=== PATIENT | female | born 1955 | race Caucasian/White ===

== ENCOUNTER 2020-01-01 07:54 | Outpatient (CLI) | payer BC, SELFPAY ==
[2020-01-01 08:55] LABS: Alanine Aminotransferase 39 U/L (4-35); Alkaline Phosphatase 60 U/L (38-126); Anion Gap 4 mmol/L (8-16); Aspartate Amino Transferase 34 U/L (14-36); Bilirubin,Total 0.1 mg/dL (0.2-1.3); Blood Urea Nitrogen 12 mg/dL (7-17); Calcium 8.8 mg/dL (8.4-10.2); Carbon Dioxide 29 mmol/L (22-30); Chloride 106 mmol/L (98-107); Estimated Glomerular Filt Rate > 60; Glucose 91 mg/dL (65-105); Potassium 3.9 mmol/L (3.4-5.0); Sodium 139 mmol/L (137-145)
== END 2020-01-01 07:55 | disposition home or self-care (01) ==
PROVIDERS: PCP Emergency Medicine; Visit Provider Emergency Medicine
DX: E78.5 Hyperlipidemia, unspecified (principal)
CPT/HCPCS: 36415; 80053

== ENCOUNTER 2020-02-06 09:41 | Outpatient (CLI) | payer BC, SELFPAY ==
--- NOTE | ~2020-02-06 | XR_ITS ---
EXAMINATION: XR shoulder RT min 2V EXAM DATE: 02/06/2020 10:08 INDICATION: No known recent injury provided at this time. Pain of the right shoulder. TECHNIQUE: The following right shoulder projections obtained: frontal projection with internal rotati on, frontal projection with external rotation, Grashey, and axillary (4+ views). There is no prior s tudy for comparison. FINDINGS: No evidence of right shoulder rotator cuff calcific tendinosis. There is mild acromiocla vicular joint primary osteoarthritis. There are no acute fractures or dislocations identified. There is no subcutaneous gas. The soft tissue is unremarkable. There are no radiopaque foreign bodies. IMPRESSION: Mild right acromioclavicular osteoarthritis. Reviewed, dictated and finalized at location B.
== END 2020-02-06 09:42 | disposition home or self-care (01) ==
PROVIDERS: PCP Emergency Medicine; Visit Provider Emergency Medicine
DX: M25.511 Pain in right shoulder (principal); M19.011 Primary osteoarthritis, right shoulder
CPT/HCPCS: 73030

== ENCOUNTER 2020-02-09 08:19 | Outpatient (CLI) | payer BC, SELFPAY ==
--- NOTE | ~2020-02-09 | MM_ITS ---
EXAMINATION: MM screening shimon BI w jose angel HISTORY: Screening mammogram TECHNIQUE: Craniocaudal and mediolateral oblique 3-D tomosynthesis images were obtained and synthetic 2-D images were generated. Bilateral rotated lateral CC views. CAD analysis was submitted and interp reted. COMPARISON: 06/11/2018, 08/29/2015, 08/10/2014 bilateral digital screening mammogram examinations BREAST PARENCHYMAL COMPOSITION: The breasts are heterogeneously dense, which may obscure small masses . FINDINGS: Stable mild fibroglandular asymmetry. There is no evidence of suspicious mass, calcificatio n, or architectural distortion to suggest malignancy in either breast. There has been no suspicious i nterval change. IMPRESSION: 1. No mammographic evidence of malignancy. 2. Recommend routine screening mammography in one year. BI-RADS Category 2: Benign finding(s). Reviewed, dictated and finalized at location A.
== END 2020-02-09 08:20 | disposition home or self-care (01) ==
PROVIDERS: PCP Emergency Medicine; Visit Provider Emergency Medicine
DX: Z12.31 Encounter for screening mammogram for malignant neoplasm of breast (principal)
CPT/HCPCS: 77063; 77067

== ENCOUNTER 2021-01-28 08:31 | Outpatient (CLI) | payer BC, SELFPAY ==
[2021-01-28 09:16] LABS: Alanine Aminotransferase 28 U/L (4-35); Albumin Level 4.4 g/dL (3.5-5.1); Alkaline Phosphatase 67 U/L (38-126); Anion Gap 8 mmol/L (8-16); Aspartate Amino Transferase 29 U/L (14-36); Bilirubin,Total 0.3 mg/dL (0.2-1.3); Blood Urea Nitrogen 10 mg/dL (7-17); Calcium 9.3 mg/dL (8.4-10.2); Carbon Dioxide 27 mmol/L (22-30); Chloride 106 mmol/L (98-107); Cholesterol 231 mg/dL (0-200); Estimated Glomerular Filt Rate > 60; Glucose 99 mg/dL (65-110); HDL Direct 43 mg/dL; Sodium 141 mmol/L (137-145); Triglycerides 179 mg/dL (<150)
[2021-01-28 09:27] LABS: LDL Cholesterol Direct 107 mg/dL
== END 2021-01-28 08:32 | disposition home or self-care (01) ==
PROVIDERS: PCP Emergency Medicine; Visit Provider Emergency Medicine
DX: Z13.220 Encounter for screening for lipoid disorders (principal)
CPT/HCPCS: 36415; 80053; 80061

== ENCOUNTER 2021-07-31 07:38 | Outpatient (CLI) | payer BC, SELFPAY ==
[2021-07-31 08:32] LABS: Alanine Aminotransferase 29 U/L (4-35); Albumin Level 4.2 g/dL (3.5-5.1); Alkaline Phosphatase 65 U/L (38-126); Anion Gap 7 mmol/L (8-16); Aspartate Amino Transferase 33 U/L (14-36); Bilirubin,Total 0.4 mg/dL (0.2-1.3); Blood Urea Nitrogen 11 mg/dL (7-17); Calcium 9.1 mg/dL (8.4-10.2); Carbon Dioxide 28 mmol/L (22-30); Chloride 105 mmol/L (98-107); Cholesterol 227 mg/dL (0-200); Estimated Glomerular Filt Rate > 60; Glucose 93 mg/dL (65-110); HDL Direct 39 mg/dL; Sodium 140 mmol/L (137-145); Triglycerides 165 mg/dL (<150)
[2021-07-31 08:43] LABS: LDL Cholesterol Direct 125 mg/dL
== END 2021-07-31 07:39 | disposition home or self-care (01) ==
PROVIDERS: PCP Emergency Medicine; Visit Provider Emergency Medicine
DX: Z13.220 Encounter for screening for lipoid disorders (principal)
CPT/HCPCS: 36415; 80053; 80061

== ENCOUNTER 2022-02-04 07:36 | Outpatient (CLI) | payer BC, SELFPAY ==
[2022-02-04 08:17] LABS: Alanine Aminotransferase 38 U/L (6-35); Albumin Level 4.1 g/dL (3.5-5.1); Alkaline Phosphatase 60 U/L (38-126); Anion Gap 8 mmol/L (8-16); Aspartate Amino Transferase 32 U/L (14-36); Bilirubin,Total 0.4 mg/dL (0.2-1.3); Blood Urea Nitrogen 11 mg/dL (7-17); Calcium 8.9 mg/dL (8.4-10.2); Carbon Dioxide 26 mmol/L (22-30); Chloride 105 mmol/L (98-107); Cholesterol 214 mg/dL (0-200); Estimated Glomerular Filt Rate > 60; Glucose 92 mg/dL (65-110); HDL Direct 42 mg/dL; Potassium 3.9 mmol/L (3.4-5.0); Sodium 139 mmol/L (137-145); Triglycerides 182 mg/dL (<150)
[2022-02-04 08:29] LABS: LDL Cholesterol Direct 112 mg/dL
== END 2022-02-04 07:37 | disposition home or self-care (01) ==
PROVIDERS: PCP Emergency Medicine; Visit Provider Emergency Medicine
DX: Z13.6 Encounter for screening for cardiovascular disorders (principal)
CPT/HCPCS: 36415; 80053; 80061

== ENCOUNTER 2022-03-23 09:05 | Outpatient (CLI) | payer BC, MEDICARE, SELFPAY ==
--- NOTE | ~2022-03-23 | MM_ITS ---
EXAMINATION: MM screening shimon BI w jose angel HISTORY: Screening mammogram TECHNIQUE: Craniocaudal and mediolateral oblique 3-D tomosynthesis images were obtained and synthetic 2-D images were generated. CAD analysis was submitted and interpreted. COMPARISON: 02/09/2020, 06/11/2018, 08/29/2015 bilateral screening mammogram examinations BREAST PARENCHYMAL COMPOSITION: The breasts are heterogeneously dense, which may obscure small masses . FINDINGS: There is no evidence of suspicious mass, calcification, or architectural distortion to sugg est malignancy in either breast. There has been no suspicious interval change. IMPRESSION: 1. No mammographic evidence of malignancy. 2. Recommend routine screening mammography in one year. BI-RADS Category 1: Negative Reviewed, dictated and finalized at location A. D CERTIFIED ARTS THERAPIST
== END 2022-03-23 09:06 | disposition home or self-care (01) ==
LOC: ANHIMG 09:08
PROVIDERS: PCP Emergency Medicine; Visit Provider Emergency Medicine
DX: Z12.31 Encounter for screening mammogram for malignant neoplasm of breast (principal)
CPT/HCPCS: 77063; 77067

== ENCOUNTER 2022-12-23 07:54 | Outpatient (CLI) | payer MEDICARE, BC, SELFPAY ==
[2022-12-23 09:10] LABS: Alanine Aminotransferase 39 U/L (6-35); Albumin Level 4.3 g/dL (3.5-5.1); Alkaline Phosphatase 61 U/L (38-126); Anion Gap 4 mmol/L (8-16); Aspartate Amino Transferase 40 U/L (14-36); Bilirubin,Total 0.5 mg/dL (0.2-1.3); Blood Urea Nitrogen 9 mg/dL (7-17); Calcium 8.9 mg/dL (8.4-10.2); Carbon Dioxide 31 mmol/L (22-30); Chloride 101 mmol/L (98-107); Cholesterol 202 mg/dL (0-200); Estimated Glomerular Filt Rate > 60; Glucose 91 mg/dL (65-110); HDL Direct 44 mg/dL; Potassium 3.6 mmol/L (3.4-5.0); Sodium 136 mmol/L (137-145); Triglycerides 143 mg/dL (<150)
[2022-12-23 09:20] LABS: LDL Cholesterol Direct 110 mg/dL
[2022-12-26 22:59] LABS: Vitamin D 1,25 (OH)2 Total 46 pg/mL (18-72); Vitamin D2 1,25 (OH)2 <8 pg/mL; Vitamin D3 1,25 (OH)2 46 pg/mL
== END 2022-12-23 07:55 | disposition home or self-care (01) ==
PROVIDERS: PCP Emergency Medicine; Visit Provider Emergency Medicine
DX: E11.9 Type 2 diabetes mellitus without complications (principal); E55.9 Vitamin D deficiency, unspecified
CPT/HCPCS: 36415; 80053; 80061; 82652

== ENCOUNTER 2023-02-11 08:43 | Outpatient (CLI) | payer MEDICARE, BC, SELFPAY ==
--- NOTE | ~2023-02-11 | CT_ITS ---
Non-contrast Head CT History: Migraine headache Technique: Axial non-contrast imaging of the brain was performed. Dose reduction technique was used on this scan by utilizing automated exposure control and iterative reconstruction technique. The dose -length product (DLP) was 605.33 mGy-cm. Findings: There is no evidence of intracranial hemorrhage, mass lesion, or acute infarct. Brain par enchyma appears normal. The ventricles and subarachnoid spaces are normal in size. The calvarium ap pears normal. The visualized paranasal sinuses and mastoid air cells are clear. Impression: No significant abnormality seen. Reviewed, dictated and finalized at location . Impression: No significant abnormality seen.
== END 2023-02-11 08:44 | disposition home or self-care (01) ==
PROVIDERS: PCP Emergency Medicine; Visit Provider Student in an Organized Health Care Education/Training Program
DX: G43.909 Migraine, unspecified, not intractable, without status migrainosus (principal)
CPT/HCPCS: 70450

== ENCOUNTER → 2023-03-25 10:59 | Outpatient (CLI) | payer MEDICARE, BC, SELFPAY ==
--- NOTE | ~2023-03-25 | DEXA_ITS ---
Bone Density Report Name: MECHELLE ZALDIVAR Age: 67 Sex: Female Ethnicity: White Date of : 1955 Indication: osteopenia; height loss; postmenopausal Referring Provider: REYNALDO GREWAL Study: Bone densitometry was performed. Exam Date: March 25, 2023 Accession number: [id number] Bone Density: Region BMD T-score Z-score Classification AP Spine (L1-L4) 0.824 -2.0 -0.2 Osteopenia Femoral Neck (Left) 0.513 -3.0 -1.5 Osteoporosis Total Hip (Left) 0.611 -2.7 -1.4 Osteoporosis Femoral Neck (Right) 0.499 -3.2 -1.6 Osteoporosis Total Hip (Right) 0.605 -2.8 -1.5 Osteoporosis Total Hip Mean 0.608 -2.8 -1.5 Osteoporosis World Health Organization criteria for BMD impression classify patients as: Normal (T-score at or above -1.0), Osteopenia (T-score between -1.0 and -2.5), or Osteoporosis (T-score at or below -2.5). 10-year Fracture Risk: FRAX not reported because: Some T-score for Spine Total or Hip Total or Femoral Neck at or below -2.5 Previous Exams: Region Exam Age BMD T-score BMD Change BMD Change Date g/cm2 vs Baseline vs Previous AP Spine(L1-L4) 03/25/2023 67 0.824 -2.0 -0.278* -0.278* 10/24/2010 55 1.102 0.5 Total Hip(Left) 03/25/2023 67 0.611 -2.7 -0.141* -0.141* 10/24/2010 55 0.752 -1.6 Total Hip(Right) 03/25/2023 67 0.605 -2.8 -0.151* -0.151* 10/24/2010 55 0.756 -1.5 *Denotes significance at 95% confidence level, LSC for AP Spine = 0.022 g/cm2, LSC for Total Hip = 0.027 g/cm2 Clinical Information Provided by Patient: Patient maximum height was 67.0 Menopause Age: 55 No regular weight bearing exercise Onset of menses at age 14 Number of children 3 Impression: The patient has osteoporosis, based on the Right Femoral Neck T-score. The BMD for the AP Spine(L1-L4) decreased, changing by -0.278 since the last DXA exam. The BMD for the Total Hip(Left) decreased, changing by -0.141 since the last DXA exam. The BMD for the Total Hip(Right) decreased, changing by -0.151 since the last DXA exam. Discussion: INCREASED RISK OF FRACTURE. BONE DENSITY IS UNDESIRABLY LOW AT ONE OR MORE SKELETAL SITES, CONSISTENT WITH POSTMENOPAUSAL OSTEOPOROSIS. This patient's lowest T-score meets the World Health Organization's (WHO) criteria for osteoporosis at one or more sites (T-score -2.5 or below). In untreated patients, the risk of osteoporotic fracture increases approximately two-fold for each 1.0
== END ==
PROVIDERS: PCP Emergency Medicine; Visit Provider Emergency Medicine
DX: Z78.0 Asymptomatic menopausal state (principal); M85.88 Other specified disorders of bone density and structure, other site; M81.0 Age-related osteoporosis without current pathological fracture
CPT/HCPCS: 77080

== ENCOUNTER 2023-06-08 08:07 | Outpatient (CLI) | payer MEDICARE, BC, SELFPAY ==
[2023-06-08 09:59] LABS: Cholesterol 208 mg/dL (0-200); HDL Direct 43 mg/dL; Triglycerides 114 mg/dL (<150)
[2023-06-08 10:10] LABS: LDL Cholesterol Direct 119 mg/dL
== END 2023-06-08 08:08 | disposition home or self-care (01) ==
PROVIDERS: PCP Emergency Medicine; Visit Provider Emergency Medicine
DX: E78.00 Pure hypercholesterolemia, unspecified (principal)
CPT/HCPCS: 36415; 80061

== ENCOUNTER 2023-11-11 08:42 | Outpatient (CLI) | payer MEDICARE, BC, SELFPAY ==
[2023-11-11 09:25] LABS: Alanine Aminotransferase 22 U/L (6-35); Alkaline Phosphatase 50 U/L (38-126); Anion Gap 5 mmol/L (4-12); Aspartate Amino Transferase 25 U/L (14-36); Bilirubin,Total 0.3 mg/dL (0.2-1.3); Blood Urea Nitrogen 9 mg/dL (7-17); Calcium 8.9 mg/dL (8.4-10.2); Carbon Dioxide 27 mmol/L (22-30); Chloride 104 mmol/L (98-107); Estimated Glomerular Filt Rate > 60; Glucose 75 mg/dL (65-110); Potassium 3.8 mmol/L (3.4-5.0); Sodium 136 mmol/L (137-145)
[2023-11-11 09:42] LABS: Vitamin D 25 Hydroxy 84.5 ng/mL
== END 2023-11-11 08:43 | disposition home or self-care (01) ==
LOC: ANHLAB 08:45
PROVIDERS: PCP Emergency Medicine; Visit Provider Emergency Medicine
DX: E55.9 Vitamin D deficiency, unspecified (principal); E78.5 Hyperlipidemia, unspecified
CPT/HCPCS: 36415; 80053; 82306

== ENCOUNTER 2023-12-17 09:33 | Outpatient (CLI) | payer MEDICARE, BC, SELFPAY ==
--- NOTE | ~2023-12-17 | MM_ITS ---
EXAMINATION: MM screening shimon BI w jose angel HISTORY: Screening TECHNIQUE: Craniocaudal and mediolateral oblique 3-D tomosynthesis images were obtained and synthetic 2-D images were generated. CAD analysis was submitted and interpreted. COMPARISON: Comparison to multiple prior studies sequentially, with oldest reviewed study dated 08/10. BREAST PARENCHYMAL COMPOSITION: Dense: The breasts are heterogeneously dense, which may obscure small masses FINDINGS: There is no evidence of suspicious mass, calcification, or architectural distortion to sugg est malignancy in either breast. There has been no suspicious interval change. IMPRESSION: 1. No mammographic evidence of malignancy. 2. Recommend routine screening mammography in one year. BI-RADS Category 1: Negative Reviewed, dictated and finalized at location B.
== END 2023-12-17 09:34 | disposition home or self-care (01) ==
LOC: ANHIMG 09:34
PROVIDERS: PCP Emergency Medicine; Visit Provider Emergency Medicine
DX: Z12.31 Encounter for screening mammogram for malignant neoplasm of breast (principal)
CPT/HCPCS: 77063; 77067

== ENCOUNTER 2024-09-08 07:33 | Outpatient (CLI) | payer MEDICARE, BC, SELFPAY ==
--- OUTSIDE RECORDS SUMMARY | 2024-09-08 07:37 | XMS_ITS | Clinical Summary ---
Author Organization [facility] [address] Address [address] [facility] [place] [address] Care Team Providers Care Residential Remodeling Subcontractor Name Role Phone Unavailable Primary Care Provider Unavailabl e Allergies No known active allergies Medications HYDROcodone-guero taminophen (VICODIN) 5-500 mg Oral tablet Take 1 Tab by mouth every 4 hours as needed for Pain. 30 Tab 0 08/03/2012 Active HYDROcodone-guero taminophen (NORCO) 5-325 mg tablet Take 1 Tab by mouth every 4 hours as needed for Pain, Moderate. 30 Tab 0 01/18/2014 Active metoprolol tartrate (LOPRESSOR) 50 mg tablet TAKE ONE AND ONE-HALF TABLET BY MOUTH TWICE A DAY 90 Tab 0 03/12/2014 Active PARoxetine HCl (PAXIL) 10 mg tablet TAKE ONE TABLET BY MOUTH ONCE DAILY 30 Tab 0 03/12/2014 Active PARoxetine HCl (PAXIL) 10 mg tablet TAKE ONE TABLET BY MOUTH ONCE DAILY 30 Tab 0 03/14/2014 Active metoprolol tartrate (LOPRESSOR) 50 mg tablet TAKE ONE AND ONE-HALF TABLET BY MOUTH TWICE A DAY 90 Tab 0 03/14/2014 Active RELPAX 40 mg Tablet TAKE 1 TABLET BY MOUTH EVERY 2 HOURS NEEDED FOR MIGRAINE - MAY REPEAT IN 2 HOURS - MAX DOSE OF 80MG ( 2 TABLETS) IN 24 HOURS 8 Tab 0 04/27/2014 Active eletriptan (RELPAX) 40 mg Tablet Take 1 Tablet (40 mg) by mouth 1 time daily as needed for Migraine May repeat in 2 hrs. Max daily dose 80mg. PATIENT NEEDS APPOINTMENT. 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 Immunizations Immunization Administration Dates Next Due (TDVAX)(7 YRS UP) TETANUS AN D DIPHTHERIA TOXOIDS, ADSORBED (2 LF OF TETANUS TOXOID AND 2 LF OF DIPHTHERIA TOXOID), 0.5ML (PF), IM 05/17/2007 Family History Medical History Relation Name Comments Hypertension Father Colon Cancer Maternal Grandmother Hypertension Mother Relation Name Status Comments Father Alive Maternal Grandmother Mother Alive Social History Tobacco Use Types Packs/Day Years Used Date Smoking Tobacco: Never Smokeless Tobacco: Never Alcohol Use Standard Drinks/Week Comments Yes 0 (1 standard drink = 0.6 oz pur e alcohol) Comments No Sex and Gender Information Value Date Recorded Sex Assigned at Not on file Legal Sex Female 4:28 AM YARN CLEANER Gender Identity Not on file Sexual Orientation Not on file Last Filed Vital Signs Vital Sign Reading Time Taken Comments Blood Pressure 102/60 03/17/2013 9:52 AM CDT Pulse 72 03/17/2013 9:52 AM CDT Temperature - - Respiratory Rate 12 03/17/2013 9:52 AM CDT Oxygen Saturation - - Inhaled Oxygen Concentration - - Weight 46.7 kg (103 lb) 03/17/2013 9:52 AM CDT Height 170.2 cm (5' 7 ) 03/17/2013 9:52 AM CDT Body Mass Index 16.13 03/17/2013 9:52 AM CDT Plan of Treatment Health Maintenance Due Date Last Done Comments FIT-DNA Q 3 years 2002 FIT/FOBT Q 1 year 2002 Flex Sig/CT Colonography Q 5 years 2002 PNEUMOCOCCAL VACCINE 50+ YEA RS (1 of 1 - PCV) 2007 ZOSTER VACCINE (1 of 2) 2007 DTAP/TDAP/TD VACCINES (1 - Tdap) 05/18/2007 05/17/19 08 BREAST CANCER SCREENING 10/15/2012 10/16/19 12, 12/15/2010, 05/17/2008 OSTEOPOROSIS SCREENING 12/15/2012 1, 08/29/2009 (Declined) COLORECTAL SCREENING 08/30/2019 08/29/2009 (Declined ) Colorectal Cancer Screening 08/30/2019 INFLUENZA VACCINE (#1) 2023 RSV VACCINE (60+ or ) (1 - 1-dose 75+ series) 2032 Insurance [facility] BLUE PREFERRED [facility] BLUE PREFERRED
--- OUTSIDE RECORDS SUMMARY | 2024-09-08 07:37 | XMS_ITS | Encounter Summary ---
Author Organization [facility] Address [address] [place] [address] Care Team Providers Care Boot And Saddle Repair Person Name Role Phone Mina Boston MD Primary Care Provider [phone] Encounter Details Date Type Department Care Team (Late st Contact Info) Description 04/18/2003 Outpatient Historical [facility] Internal Medicine [address] [phone] Mina Boston MD [address] [place] [phone] Social History Tobacco Use Types Packs/Day Years Used Date Smoking Tobacco: Never Assessed Comments Unknown Sex and Gender Information Value Date Recorded Sex Assigned at Not on file Legal Sex Female 4:28 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
--- OUTSIDE RECORDS SUMMARY | 2024-09-08 07:37 | XMS_ITS | Encounter Summary ---
Author Organization [facility] Address [address] [place] [address] Care Team Providers Care Political Geographer Name Role Phone Mina Boston MD Primary Care Provider [phone] Encounter Details Date Type Department Care Team (Late st Contact Info) Description 03/12/1999 Outpatient Historical [facility] Internal Medicine [address] [phone] Mina Boston MD [address] [place] [phone] Social History Tobacco Use Types Packs/Day Years Used Date Smoking Tobacco: Never Assessed Comments Unknown Sex and Gender Information Value Date Recorded Sex Assigned at Not on file Legal Sex Female 4:28 AM WINE STEWARD Gender Identity Not on file Sexual Orientation Not on file documented as of this encounter Plan of Treatment Not on file documented as of this encounter Visit Diagnoses Not on filedocumented in this encounter Care Teams Political Geographer Relationship Specialty Start Date End Date Mina Boston MD [address] [phone] PCP - General Internal Medicine 08/06/10 08/20/15 documented as of this encounter
--- OUTSIDE RECORDS SUMMARY | 2024-09-08 07:37 | XMS_ITS | Encounter Summary ---
Author Organization [facility] Address [address] [place] [address] Care Team Providers Care Steel Melter Name Role Phone Mina Boston MD Primary Care Provider [phone] Encounter Details Date Type Department Care Team (Late st Contact Info) Description 03/17/2000 Outpatient Historical [facility] Internal Medicine [address] [phone] Mina Boston MD [address] [place] [phone] Social History Tobacco Use Types Packs/Day Years Used Date Smoking Tobacco: Never Assessed Comments Unknown Sex and Gender Information Value Date Recorded Sex Assigned at Not on file Legal Sex Female 4:28 AM NUCLEAR STATION OPERATOR Gender Identity Not on file Sexual Orientation Not on file documented as of this encounter Plan of Treatment Not on file documented as of this encounter Visit Diagnoses Not on filedocumented in this encounter Care Teams Steel Melter Relationship Specialty Start Date End Date Mina Boston MD [address] [phone] PCP - General Internal Medicine 08/06/10 08/20/15 documented as of this encounter
--- OUTSIDE RECORDS SUMMARY | 2024-09-08 07:37 | XMS_ITS | Encounter Summary ---
Author Organization [facility] Address [address] [place] [address] Care Team Providers Care Hot Metal Crane Operator Name Role Phone Mina Bostno MD Primary Care Provider [phone] Encounter Details Date Type Department Care Team (Late st Contact Info) Description 10/20/2000 Outpatient Historical [facility] Internal Medicine [address] [phone] Mina Boston MD [address] [place] [phone] Social History Tobacco Use Types Packs/Day Years Used Date Smoking Tobacco: Never Assessed Comments Unknown Sex and Gender Information Value Date Recorded Sex Assigned at Not on file Legal Sex Female 4:28 AM ESTHETICS INSTRUCTOR Gender Identity Not on file Sexual Orientation Not on file documented as of this encounter Plan of Treatment Not on file documented as of this encounter Visit Diagnoses Not on filedocumented in this encounter Care Teams Hot Metal Crane Operator Relationship Specialty Start Date End Date Mina Boston MD [address] [phone] PCP - General Internal Medicine 08/06/10 08/20/15 documented as of this encounter
--- OUTSIDE RECORDS SUMMARY | 2024-09-08 07:37 | XMS_ITS | Encounter Summary ---
Author Organization [facility] Address [address] [place] [address] Care Team Providers Care Services Coordinator Name Role Phone Mina Boston MD Primary Care Provider Encounter Details Date Type Department Care Team (Late st Contact Info) Description 11/13/1997 Outpatient Historical [facility] Internal Medicine - [address] [phone] Mina Boston MD [address] [place] [phone] Social History Tobacco Use Types Packs/Day Years Used Date Smoking Tobacco: Never Assessed Comments Unknown Sex and Gender Information Value Date Recorded Sex Assigned at Not on file Legal Sex Female 4:28 AM STATIONS SUPERINTENDENT Gender Identity Not on file Sexual Orientation Not on file documented as of this encounter Plan of Treatment Not on file documented as of this encounter Visit Diagnoses Not on filedocumented in this encounter Care Teams Services Coordinator Relationship Specialty Start Date End Date Mina Boston MD [address] [place] [phone] PCP - General Internal Medicine 08/06/10 08/20/15 documented as of this encounter
--- OUTSIDE RECORDS SUMMARY | 2024-09-08 07:37 | XMS_ITS | Encounter Summary ---
Author Organization [facility] Address [address] [place] [address] Care Team Providers Care Outside Machinist Apprentice Name Role Phone Mina Boston MD Primary Care Provider [phone] Encounter Details Date Type Department Care Team (Late st Contact Info) Description 03/17/2001 Outpatient Historical [facility] Internal Medicine [address] [phone] Calderon Ramos, Marcel Garduno MD NO ADDRESS ON FILE Social History Tobacco Use Types Packs/Day Years Used Date Smoking Tobacco: Never Assessed Comments Unknown Sex and Gender Information Value Date Recorded Sex Assigned at Not on file Legal Sex Female 4:28 AM CASE MANAGEMENT COORDINATOR Gender Identity Not on file Sexual Orientation Not on file documented as of this encounter Plan of Treatment Not on file documented as of this encounter Visit Diagnoses Not on filedocumented in this encounter Care Teams Outside Machinist Apprentice Relationship Specialty Start Date End Date Mina Boston MD [address] [place] [phone] PCP - General Internal Medicine 08/06/10 08/20/15 documented as of this encounter
--- OUTSIDE RECORDS SUMMARY | 2024-09-08 07:37 | XMS_ITS | Encounter Summary ---
Author Organization [facility] Address [address] [place] [address] Care Team Providers Care Sociocultural Anthropology Professor Name Role Phone Mina Boston MD Primary Care Provider [phone] Encounter Details Date Type Department Care Team (Late st Contact Info) Description 06/10/2005 Outpatient Historical [facility] Internal Medicine [address] [phone] Mina Boston MD [address] [place] [phone] Social History Tobacco Use Types Packs/Day Years Used Date Smoking Tobacco: Never Assessed Comments Unknown Sex and Gender Information Value Date Recorded Sex Assigned at Not on file Legal Sex Female 4:28 AM CLEANER OPERATOR Gender Identity Not on file Sexual Orientation Not on file documented as of this encounter Plan of Treatment Not on file documented as of this encounter Visit Diagnoses Not on filedocumented in this encounter Care Teams Sociocultural Anthropology Professor Relationship Specialty Start Date End Date Mina Boston MD [address] [phone] PCP - General Internal Medicine 08/06/10 08/20/15 documented as of this encounter
--- OUTSIDE RECORDS SUMMARY | 2024-09-08 07:37 | XMS_ITS | Encounter Summary ---
Author Organization [facility] Address [address] [place] [address] Care Team Providers Care Precast Molder Name Role Phone Mina Boston MD Primary Care Provider [phone] Encounter Details Date Type Department Care Team (Late st Contact Info) Description 10/20/2000 Outpatient Historical [facility] Internal Medicine [address] [phone] Mina Boston MD [address] [place] [phone] Social History Tobacco Use Types Packs/Day Years Used Date Smoking Tobacco: Never Assessed Comments Unknown Sex and Gender Information Value Date Recorded Sex Assigned at Not on file Legal Sex Female 4:28 AM TREE TRIMMING LINE TECHNICIAN Gender Identity Not on file Sexual Orientation Not on file documented as of this encounter Plan of Treatment Not on file documented as of this encounter Visit Diagnoses Not on filedocumented in this encounter Care Teams Precast Molder Relationship Specialty Start Date End Date Mina Boston MD [address] [phone] PCP - General Internal Medicine 08/06/10 08/20/15 documented as of this encounter
[2024-09-08 08:03] LABS: Cholesterol 197 mg/dL (0-200); HDL Direct 53 mg/dL; Triglycerides 71 mg/dL (<150)
[2024-09-08 08:13] LABS: LDL Cholesterol Direct 100 mg/dL
== END 2024-09-08 07:34 | disposition home or self-care (01) ==
LOC: ANHLAB 07:35
PROVIDERS: PCP Emergency Medicine; Visit Provider Psychiatry & Neurology Neurology
DX: E78.5 Hyperlipidemia, unspecified (principal)
CPT/HCPCS: 36415; 80061

== ENCOUNTER 2024-09-13 14:13 | Outpatient (CLI) | payer MEDICARE, BC, SELFPAY ==
--- NOTE | ~2024-09-13 | US_ITS ---
EXAMINATION: US carotid duplex BI DATE: 09/13/2024 15:02 INDICATION: Carotid bruit TECHNIQUE: Grayscale, color Doppler, and pulsed Doppler images of the cervical carotid arteries were obtained. The degree of vessel stenosis is placed in one of the following categories: normal, <50%, 5 0-69%, >=70% but less than near-occlusion, near-occlusion, or total occlusion. Note that percent sten osis relative to normal distal artery lumen diameter is indirectly measured from velocity measurement s as described by Julio Cesar, et al. Radiology 2003; 229:340-346. Notes: Normal: Peak systolic velocity <125 centimeters/sec and no plaque <50%. Peak systolic velocity <125 ( EDV <40; ICA/CCA PSV ratio <2.0; used these factors only a tandem lesions or low cardiac output or co ntralateral disease) 50-69 %: PSV 125-230 (EDV 40-100; ratio 2-4) >= 70% but less than near occlusion: PSV greater than 230 (EDV > 100; ratio> 4.0) Near Occlusion: PSV that is variable; markedly narrowed lumen Occlusion: Absent flow on color/spectral Doppler and no lumen on cooley scale. COMPARISON: None. FINDINGS: RIGHT: The right common carotid artery (CCA) peak systolic velocity (PSV) is 108 cm/s. The right internal ca rotid artery (ICA) PSV is 122 cm/s. The right ICA end-diastolic velocity (EDV) is 38 cm/s. The right ICA/CCA PSV ratio is 1.1. The external carotid artery (ECA) PSV is 91 cm/s. There is antegrade flow i n the right vertebral artery. LEFT: The left CCA PSV is 102 cm/s. The left ICA PSV is 110 cm/s. The left ICA EDV is 25 cm/s. The left ICA /CCA PSV ratio is 1.2. The ECA PSV is 114 cm/s. There is antegrade flow in the left vertebral artery . IMPRESSION: 1. Less than 50% stenosis in the right internal carotid artery by sonographic criteria. 2. Less than 50% stenosis in the left internal carotid artery by sonographic criteria. Reviewed, dictated and finalized at location A. IMPRESSION: 1. Less than 50% stenosis in the right internal carotid artery by sonographic geetha roque. 2. Less than 50% stenosis in the left internal carotid artery by sonographic chitra carroll.
--- OUTSIDE RECORDS SUMMARY | 2024-09-13 15:21 | XMS_ITS | Encounter Summary ---
Author Organization [facility] Address [address] [place] [address] Care Team Providers Care Interventional Physician Name Role Phone Mina Boston MD Primary Care Provider [phone] Encounter Details Date Type Department Care Team (Late st Contact Info) Description 03/17/2000 Outpatient Historical [facility] Internal Medicine [address] [phone] Mina Boston MD [address] [place] [phone] Social History Tobacco Use Types Packs/Day Years Used Date Smoking Tobacco: Never Assessed Comments Unknown Sex and Gender Information Value Date Recorded Sex Assigned at Not on file Legal Sex Female 4:28 AM HAND MICA PLATE LAYER Gender Identity Not on file Sexual Orientation Not on file documented as of this encounter Plan of Treatment Not on file documented as of this encounter Visit Diagnoses Not on filedocumented in this encounter Care Teams Interventional Physician Relationship Specialty Start Date End Date Mina Boston MD [address] [phone] PCP - General Internal Medicine 08/06/10 08/20/15 documented as of this encounter
--- OUTSIDE RECORDS SUMMARY | 2024-09-13 15:21 | XMS_ITS | Encounter Summary ---
Author Organization [facility] Address [address] [place] [address] Care Team Providers Care Airplane Pilot Helper Name Role Phone Mina Boston MD Primary Care Provider Encounter Details Date Type Department Care Team (Late st Contact Info) Description 11/13/1997 Outpatient Historical [facility] Internal Medicine - [facility] [address] [phone] Mina Boston MD [address] [place] [phone] Social History Tobacco Use Types Packs/Day Years Used Date Smoking Tobacco: Never Assessed Comments Unknown Sex and Gender Information Value Date Recorded Sex Assigned at Not on file Legal Sex Female 4:28 AM SUPPLIER DEVELOPMENT MANAGER Gender Identity Not on file Sexual Orientation Not on file documented as of this encounter Plan of Treatment Not on file documented as of this encounter Visit Diagnoses Not on filedocumented in this encounter Care Teams Airplane Pilot Helper Relationship Specialty Start Date End Date Mina Boston MD [address] [place] [phone] PCP - General Internal Medicine 08/06/10 08/20/15 documented as of this encounter
--- OUTSIDE RECORDS SUMMARY | 2024-09-13 15:21 | XMS_ITS | Encounter Summary ---
Author Organization [facility] Address [address] [place] [address] Care Team Providers Care Healthcare Consultant Name Role Phone Mina Boston MD Primary Care Provider [phone] Encounter Details Date Type Department Care Team (Late st Contact Info) Description 06/10/2005 Outpatient Historical [facility] Internal Medicine [address] [phone] Mina Boston MD [address] [place] [phone] Social History Tobacco Use Types Packs/Day Years Used Date Smoking Tobacco: Never Assessed Comments Unknown Sex and Gender Information Value Date Recorded Sex Assigned at Not on file Legal Sex Female 4:28 AM EAP COUNSELOR Gender Identity Not on file Sexual Orientation Not on file documented as of this encounter Plan of Treatment Not on file documented as of this encounter Visit Diagnoses Not on filedocumented in this encounter Care Teams Healthcare Consultant Relationship Specialty Start Date End Date Mina Boston MD [address] [phone] PCP - General Internal Medicine 08/06/10 08/20/15 documented as of this encounter
--- OUTSIDE RECORDS SUMMARY | 2024-09-13 15:21 | XMS_ITS | Encounter Summary ---
Author Organization [facility] Address [address] [place] [address] Care Team Providers Care Inserter Operator Name Role Phone Mina Boston MD Primary Care Provider [phone] Encounter Details Date Type Department Care Team (Late st Contact Info) Description 04/18/2003 Outpatient Historical [facility] Internal Medicine [address] [phone] Mina Boston MD [address] [place] [phone] Social History Tobacco Use Types Packs/Day Years Used Date Smoking Tobacco: Never Assessed Comments Unknown Sex and Gender Information Value Date Recorded Sex Assigned at Not on file Legal Sex Female 4:28 AM HOG SCALDER Gender Identity Not on file Sexual Orientation Not on file documented as of this encounter Plan of Treatment Not on file documented as of this encounter Visit Diagnoses Not on filedocumented in this encounter Care Teams Inserter Operator Relationship Specialty Start Date End Date Mina Boston MD [address] [phone] PCP - General Internal Medicine 08/06/10 08/20/15 documented as of this encounter
--- OUTSIDE RECORDS SUMMARY | 2024-09-13 15:21 | XMS_ITS | Encounter Summary ---
Author Organization [facility] Address 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
--- OUTSIDE RECORDS SUMMARY | 2024-09-13 15:21 | XMS_ITS | Encounter Summary ---
Author Organization [facility] Address 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
--- OUTSIDE RECORDS SUMMARY | 2024-09-13 15:21 | XMS_ITS | Encounter Summary ---
Author Organization [facility] Address 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
--- OUTSIDE RECORDS SUMMARY | 2024-09-13 15:21 | XMS_ITS | Clinical Summary ---
Author Organization [facility] [address] Address [address] [facility] 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
--- OUTSIDE RECORDS SUMMARY | 2024-09-13 15:21 | XMS_ITS | Encounter Summary ---
Author Organization [facility] Address [address] [place] [address] Care Team Providers Care Senior Oracle Applications Developer Name Role Phone Mina Boston MD Primary Care Provider [phone] Encounter Details Date Type Department Care Team (Late st Contact Info) Description 10/20/2000 Outpatient Historical [facility] Internal Medicine [address] [phone] Mina Boston MD [address] [place] [phone] Social History Tobacco Use Types Packs/Day Years Used Date Smoking Tobacco: Never Assessed Comments Unknown Sex and Gender Information Value Date Recorded Sex Assigned at Not on file 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
== END 2024-09-13 14:14 | disposition home or self-care (01) ==
LOC: ANHIMG 14:18
PROVIDERS: PCP Emergency Medicine; Visit Provider Psychiatry & Neurology Neurology
DX: I65.23 Occlusion and stenosis of bilateral carotid arteries (principal); R09.89 Other specified symptoms and signs involving the circulatory and respiratory systems
CPT/HCPCS: 93880

== ENCOUNTER 2024-11-03 09:16 | Outpatient (CLI) | payer MEDICARE, BC, SELFPAY ==
[2024-11-03 09:47] LABS: Alanine Aminotransferase 28 U/L (6-35); Albumin Level 3.9 g/dL (3.5-5.1); Alkaline Phosphatase 56 U/L (38-126); Anion Gap 5 mmol/L (4-12); Aspartate Amino Transferase 35 U/L (14-36); Bilirubin,Total 0.4 mg/dL (0.2-1.3); Blood Urea Nitrogen 7 mg/dL (7-17); Carbon Dioxide 29 mmol/L (22-30); Chloride 100 mmol/L (98-107); Estimated Glomerular Filt Rate > 60; Glucose 92 mg/dL (65-110); Sodium 134 mmol/L (137-145); Total Protein 6.7 g/dL (6.3-8.2)
[2024-11-03 10:44] LABS: Vitamin D 25 Hydroxy 76.4 ng/mL
== END 2024-11-03 09:17 | disposition home or self-care (01) ==
LOC: ANHLAB 09:17
PROVIDERS: PCP Emergency Medicine; Visit Provider Emergency Medicine
DX: E78.5 Hyperlipidemia, unspecified (principal); E55.9 Vitamin D deficiency, unspecified
CPT/HCPCS: 36415; 80053; 82306

== ENCOUNTER 2025-04-03 10:36 | Emergency (ER) | payer MEDICARE, BC, SELFPAY ==
[2025-04-03 10:50] VITALS: BP 140/59; PULSE 70; RESP 18; TEMP 36.4; O2SAT 100
--- NOTE | 2025-04-03 13:22 | ED.SKABFB ---
HPI - Skin/Abscess/Foreign Bdy General Chief complaint: Skin/Abscess/Foreign Body Stated complaint: foreign body possibly in vagina Time Seen by Provider: 04/03/25 12:10 Source: patient Mode of arrival: ambulatory Limitations: no limitations History of Present Illness HPI narrative: Patient is a 69-year-old female who presents the ED with concern for condom in her vagina. Patient reports she had intercourse last night with her significant other and they were unable to find the condom afterwards. She is concerned the condom is stuck in her vagina. She has tried exploring with her fingers and reports of small amount of vaginal bleeding afterwards. Denies significant pain. Related Data Allergies Allergy/AdvReac Type Severity Reaction Status Date / Time No Known Allergies Allergy Verified 02/27/25 10:31 Review of Systems Review of Systems: All systems reviewed & are unremarkable except as noted in HPI. All systems reviewed & are unremarkable except as noted in HPI and below PMFSH Past Medical History Medical History Other screening mammogram Hyperlipidemia Right carotid bruit Shoulder pain, right Rotator cuff tendinitis Intractable chronic migraine without aura Vitamin D deficiency Underweight (07/09/15) Pain in left hip Menopause Insomnia, unspecified Impacted cerumen of both ears Hip pain, bilateral Decreased ROM of left shoulder Acute recurrent frontal sinusitis Acute pain of left shoulder Acute non-recurrent maxillary sinusitis Pain in the neck Migraines Family History Family History Father Family history of cardiovascular disease, Onset Age: 91 Hypertension Mother Family history of Alzheimer's disease Hypertension Family history of malignant neoplasm of breast in first degree relative Social History Social History Smoking status: Never smoker Alcohol intake: never Substance use: never Substance use type: does not use Do You Feel Safe in your Home?: Yes Lack of Transportation: No Lack of Food: Never True Current Housing: I Have Housing Concerned About Future Housing: No Difficulty Paying Gas/Electric Bills: No Difficulty Paying for Meds: No Currently Unemployed: No Education: High School Diploma/GED Difficulty w/ Childcare or Family Care: No Exam Narrative: GENERAL: Well appearing, thin, non-toxic, in no acute distress. HEAD: Normocephalic, atraumatic. RESPIRATORY: Airway patent, respirations nonlabored. CARDIOVASCULAR: Regular rate and rhythm PELVIC: Normal external genitalia. Cervix unremarkable. No significant abnormal drainage. Small contusion to posterior/superior vaginal canal without active bleeding. MUSCULOSKELETAL: Moves all extremities. No gross deformities. SKIN: Warm, dry, normal color. NEURO: A&O X3. Speech clear. PSYCHIATRIC: Appropriate mood and affect. Normal interaction. Course Vital Signs Vital signs: Vital Signs Temperature 97.6 F 04/03/25 10:50 Pulse Rate 70 04/03/25 10:50 Respiratory Rate 18 04/03/25 10:50 Blood Pressure 140/59 L 04/03/25 10:50 Pulse Oximetry 100 04/03/25 10:50 Oxygen Delivery Room Air 04/03/25 10:50 Temperature 97.6 F 04/03/25 10:50 Pulse Rate 70 04/03/25 10:50 Respiratory Rate 18 04/03/25 10:50 Blood Pressure 140/59 L 04/03/25 10:50 Pulse Oximetry 100 04/03/25 10:50 Oxygen Delivery Room Air 04/03/25 10:50 MDM - Skin/Abscess/Foreign Bdy MDM Narrative Medical decision making narrative: Pelvic exam unremarkable. No foreign body. Patient given reassurance. Advised to follow-up with OBGYN as needed. Given return precautions. Discharged in stable condition. Medical Records Attestation: I reviewed the patient's medical records. Discharge Plan Discharge Clinical Impression: Normal pelvic exam Patient Disposition: Home Condition: Stable Instructions: Antibiotic Form, Vaginal Foreign Body (ED) Additional Instructions: There was no foreign bodies seen on your pelvic exam. Follow up with your OBGYN/primary care doctor for further evaluation if needed. Return for new or worsening concerns, severe bleeding, severe pain, unable to keep down food or drink, fevers, or any other symptoms of concern. Patient Language: Chinese Prescriptions: No Action amitriptyline 25 mg tablet 25 mg PO QHS Qty: 90 2RF Qulipta 60 mg tablet 60 mg PO DAILY Qty: 30 7RF eletriptan 20 mg tablet 40 mg .ROUTE .COMPLEX Qty: 60 3RF Rx Instructions: 40 mg At the onset of the headache and may repeat after 6-8 hours maximum 80 mg a day may be combined with naproxen 500 mg at the onset for better relief and to prevent rebound headache topiramate [Topamax] 50 mg tablet 50 mg PO DAILY Qty: 90 2RF naproxen 500 mg tablet 500 mg PO BID PRN (Reason: pain) Qty: 60 1RF Rx Instructions: take 1 tablet with Eletriptan at the onset of headache may repeat after 8 hours metoprolol tartrate 50 mg tablet See Rx Instructions .ROUTE .COMPLEX Qty: 270 2RF Dose Instruction: TAKE ONE AND ONE-HALF TABLETS BY MOUTH TWICE A DAY WITH MEALS Rx Instructions: TAKE ONE AND ONE-HALF TABLETS BY MOUTH TWICE A DAY WITH MEALS Follow-up/Referrals: Sarmad Jeffrey MD [Primary Care Provider, Internal Medicine] Ian Malcolm MD [Physician, STRATEGIC PARTNERSHIP MANAGER] Referral Note: OBGYN Time of Disposition: 13:28
== END 2025-04-03 13:45 | disposition home or self-care (01) ==
PROVIDERS: Emergency Provider Physician Assistant; PCP Emergency Medicine
DX: Z03.823 Encounter for observation for suspected inserted (injected) foreign body ruled out (principal); E78.5 Hyperlipidemia, unspecified; E55.9 Vitamin D deficiency, unspecified
CPT/HCPCS: 99282

== ENCOUNTER 2025-05-14 06:55 | Outpatient (CLI) | payer MEDICARE, BC, SELFPAY ==
[2025-05-14 08:08] LABS: Alanine Aminotransferase 20 U/L (6-35); Albumin Level 3.8 g/dL (3.5-5.1); Alkaline Phosphatase 67 U/L (38-126); Anion Gap 2 mmol/L (4-12); Aspartate Amino Transferase 35 U/L (14-36); Bilirubin,Total 0.6 mg/dL (0.2-1.3); Blood Urea Nitrogen 11 mg/dL (7-17); Calcium 8.7 mg/dL (8.4-10.2); Carbon Dioxide 29 mmol/L (22-30); Chloride 104 mmol/L (98-107); Cholesterol 208 mg/dL (0-200); Estimated Glomerular Filt Rate > 60; Glucose 90 mg/dL (65-110); HDL Direct 46 mg/dL; Potassium 3.3 mmol/L (3.4-5.0); Sodium 135 mmol/L (137-145); Total Protein 6.6 g/dL (6.3-8.2); Triglycerides 81 mg/dL (<150)
== END 2025-05-14 06:56 | disposition home or self-care (01) ==
PROVIDERS: PCP Emergency Medicine; Visit Provider Emergency Medicine
DX: E78.5 Hyperlipidemia, unspecified (principal); E55.9 Vitamin D deficiency, unspecified
CPT/HCPCS: 36415; 80053; 80061; 82306